=== PATIENT | female | born 1945 | race Caucasian/White ===

== ENCOUNTER → 2017-09-27 | Outpatient (CLI) | payer MEDICARE ==
[~2017-09-27] MED LIST: BIOT10TA PO; BUPR300T PO; COQ-100C5 PO; CRAN500C2 PO; CRANCAP2 PO; ESCI20TA PO; ESTR0.62 VAGINAL; HYDR25TA5 PO; IBUP200T47 PO; LAMO100T PO; LEVO25TA4 PO; LOPE-1 PO; LOSA50TA PO; METO25TA3 PO; PHILCAP2 PO; ROSU10 PO; ROSU5 PO; TURM1CAP6 PO; VITA2000 PO; ZANT150T2 PO; [UNRECOGNIZED DRUG - CODE] PO
[2017-09-27 09:22] LABS: AUTOMATED NEUTROPHIL # 4.2 TH/MM3 (1.8-7.7); BASOPHIL # 0.1 TH/MM3 (0-0.2); BASOPHIL % 0.8 % (0.0-2.0); EOSINOPHIL # 0.2 TH/MM3 (0-0.4); EOSINOPHIL % 3.1 % (0.0-4.0); HEMATOCRIT 42.4 % (35.0-46.0); HEMOGLOBIN 14.5 GM/DL (11.6-15.3); LYMPH % 28.7 % (9.0-44.0); LYMPHOCYTE # 2.1 TH/MM3 (1.0-4.8); MEAN CELL VOLUME 88.2 FL (80.0-100.0); MEAN CORPUSCULAR HEMOGLOBIN 30.1 PG (27.0-34.0); MEAN CORPUSCULAR HGB CONC 34.2 % (32.0-36.0); MEAN PLATELET VOLUME 8.6 FL (7.0-11.0); MONO % 8.7 % (0.0-8.0); MONOCYTE # 0.6 TH/MM3 (0-0.9); NEUT % 58.7 % (16.0-70.0); PLATELET COUNT 252 TH/MM3 (150-450); RED CELL DISTRIBUTION WIDTH 13.2 % (11.6-17.2); WHITE BLOOD COUNT 7.2 TH/MM3 (4.0-11.0)
[2017-09-27 09:44] LABS: BICARBONATE 31.5 MEQ/L (21.0-32.0); CALCIUM 9.6 MG/DL (8.5-10.1); CREATININE 0.96 MG/DL (0.50-1.00)
--- NOTE | 2017-09-27 10:55 | RADRPT ---
EXAM DATE/TIME: 09/27/2017 10:03 [place] COMPARISON: No previous studies available for comparison. INDICATIONS : Evaluate for pneumothorax, pnuemonia, or other communicable disease. Pre-op left knee surgery. MEDICAL HISTORY : Hypertension. SURGICAL HISTORY : Mitral valve repair ENCOUNTER: Initial ACUITY: 1 day PAIN SCORE: 0/10 LOCATION: Bilateral chest FINDINGS: Sternal wires from previous median sternotomy and mitral valve replacement noted. The heart is mildly enlarged without overt failure. 8 mm nodule left upper lobe nonspecific. 4 mm granuloma noted adjacent to this. Mild degenerative c hanges thoracic spine. CONCLUSION: Abnormal preoperative chest. Noncontrast CT scan is suggested. Jeyson Rubio MD FACR on September 27, 2017 at 10:51 Board Certified Radiologist. This report was verified electronically.
[2017-09-27 10:57] LABS: BILIRUBIN, URINE NEG (NEG); BLOOD, URINE NEG (NEG); GLUCOSE,URINE NEG (NEG); HYALINE CAST, URINE 10 /lpf (RARE); KETONE, URINE NEG (NEG); MUCUS URINE FEW /lpf (OCC); NITRITE,URINE NEG (NEG); PH, URINE 5.5 (5.0-8.5); SQUAMOUS EPITHELIAL CELL URINE 1 /hpf (0-5); URINE COLOR YELLOW (YELLW/STRAW); URINE LEUKOCYTE ESTERASE NEG (NEG)
== END ==
LOC: CPRE 08:52
PROVIDERS: ATTEND Orthopaedic Surgery
DX: Z01.812 Encounter for preprocedural laboratory examination (principal); Z01.811 Encounter for preprocedural respiratory examination; M17.12 Unilateral primary osteoarthritis, left knee
CPT/HCPCS: 36415; 71046; 80048; 81001; 85025; 85610

== ENCOUNTER 2017-11-11 06:30 | Day surgery (SDC) | payer MEDICARE ==
[~2017-11-11 06:30] MED LIST changes: -CRAN500C2 PO; -ESTR0.62 VAGINAL; -LAMO100T PO; -ROSU10 PO
[2017-11-11] MEDS ORDERED: LACTATED RINGER'S 1000 ML IV PRN (07:00)
[2017-11-11] MEDS ORDERED: CHLORHEXIDINE GLUCONATE 2 % 1 PACK (2 CLOTHS) TOPICAL PRN (07:00)
[2017-11-11] MEDS ORDERED: POVIDONE IODINE 5% (ANTISEPSIS KIT) 4 APPLICATIONS EACH NARE PRN (07:00)
[2017-11-11] MEDS ORDERED: SODIUM CHLORID 0.9% 500 ML IV PRN (07:00)
[2017-11-11] MEDS ORDERED: METOPROLOL TARTRATE 25 MG TAB PO PRN (07:00)
[2017-11-11] MEDS ORDERED: TYLE325T PO (07:39)
[2017-11-11] MEDS ORDERED: XARE20TA PO (07:39)
[2017-11-11] MEDS ORDERED: TURM500C7 PO (07:39)
[2017-11-11] MEDS ORDERED: AMIO200T PO (07:39)
[2017-11-11] MEDS ORDERED: AMLO5TAB2 PO (07:39)
[2017-11-11] MEDS ORDERED: PROPOFOL 200 MG/20 ML AMP IV ONE (12:00)
[2017-11-11] MEDS ORDERED: GLYCOPYRROLATE 1 MG/5 ML SYRINGE IV PUSH ONE (12:00)
--- NOTE | 2017-11-11 20:18 | EKG ---
Date Performed: 11/11/2017 Time Performed: 06:58:08 PTAGE: 72 years EKG: Atrial fibrillation with slow ventricular response. Prolonged QT interval Septal and latera l ST-T changes are nonspecific Compared to previous tracing, ventricular response to atrial fibrillat ion is slower Abnormal ECG NO PREVIOUS TRACING DOCTOR: Leo Bender Interpretating Date/Time 11/11/2017 20:17:38
--- NOTE | 2017-11-11 20:18 | EKG ---
Date Performed: 11/11/2017 Time Performed: 08:45:04 PTAGE: 72 years EKG: Sinus bradycardia. Prolonged QT interval Extensive ST-T changes may be due to myocardial is chemia Compared to previous tracing, marked sinus bradycardia has replaced atrial fibrillation with a slow ventricular response ST changes are slightly more prominent Abnormal ECG PREVIOUS TRACING : 11/11/17 @ 0658 DOCTOR: Leo Bender Interpretating Date/Time 11/11/2017 20:18:36
== END 2017-11-11 09:28 | disposition home or self-care (01) ==
LOC: HDOC 06:30 → HDIC 06:31 → HDOC 09:28
PROVIDERS: ATTEND Internal Medicine Interventional Cardiology
DX: I48.91 Unspecified atrial fibrillation (principal); I10 Essential (primary) hypertension; E78.5 Hyperlipidemia, unspecified; J44.9 Chronic obstructive pulmonary disease, unspecified
CPT/HCPCS: 92960; 93005